=== PATIENT | male | born 1955 | race Hispanic/Latino ===

== ENCOUNTER 2019-05-13 13:12 | Inpatient (IN) | payer SELFPAY ==
[2019-05-13] MEDS ORDERED: Lorazepam 2 MG/ML VIAL ONE ×3 (13:25→15:04)
[2019-05-13] MEDS ORDERED: Iopamidol-370 76% 500 ML 1 ML ONE (13:54)
[2019-05-13 14:15] LABS: Hemoglobin 12.3 g/dL (14.0-18.0); Mean Corpuscular HGB CONC 35.9 g/dL (32.0-36.0); Mean Corpuscular Hemoglobin 34.1 pg (27.0-31.0); Mean Corpuscular Volume 94.9 fL (78.0-98.0); RBC Distribution Width 11.6 % (11.5-14.5); White Blood Cell (WBC) Count 4.6 thou/uL (4.8-10.8)
[2019-05-13 14:17] LABS: PTT 28.7 SEC (22.9-36.1); Prothrombin Time 13.1 SEC (12.0-14.7)
--- NOTE | 2019-05-13 14:24 | CT ---
CT OF THE BRAIN WITHOUT CONTRAST: INDICATION: History of seizures and heavy drinking history. COMPARISON: None. FINDINGS: No acute infarct, hemorrhage, or hydrocephalus is present. No midline shift is evident. The skull a nd extracranial soft tissues appear within normal limits. There is mild mucosal thickening of the et hmoid air cells. Mastoid air cells are clear. IMPRESSION: No acute intracranial abnormality. POS: TPC
[2019-05-13 14:36] LABS: ALT (SGPT) 59 U/L (8-55); AST (SGOT) 98 U/L (5-34); Acetaminophen Less than 6.0 mcg/mL (10.0-30.0); Albumin 3.9 g/dL (3.4-4.8); Alcohol Less than 10 mg/dL (Less than 10); Alkaline Phosphatase 124 U/L (40-110); Anion Gap 16 mmol/L (10-20); BUN (Urea Nitrogen) 13 mg/dL (8.4-25.7); Bilirubin, Total 1.3 mg/dL (0.2-1.2); Calc. Creatinine Clearance 0 mL/min (70-130); Carbon Dioxide 21 mmol/L (23-31); Chloride 84 mmol/L (98-107); Estimated GFR-MDRD Greater than 90; Globulin 3.9 g/dL (2.4-3.5); Glucose 97 mg/dL (80-115); Lipase 104 U/L (8-78); Potassium 3.8 mmol/L (3.5-5.1); Protein, Total 7.8 g/dL (5.8-8.1); Salicylate Less than 8.0 mg/dL (15.0-30.0)
[2019-05-13 14:38] LABS: Sodium 117 mmol/L (136-145)
[2019-05-13 14:43] LABS: Band 13 % (5-11); Eosinophils 1 % (0-10); Lymphocytes 11 % (21-51); MDiff Complete? YES; Monocytes 20 % (0-10); Neutrophil 54 % (42-75); Platelet Count 65 thou/uL (130-400); Platelet Morphology Comment Appears Decreased; Polychromasia SLIGHT = 2-3 cells (100X) (0-2/hpf); Reactive Lymphocytes 1 % (0-10)
[2019-05-13] MEDS ORDERED: Midazolam HCl 2 mg/2 ml Vial ONE ×3 (15:25→17:50)
[2019-05-13] MEDS ORDERED: Succinylcholine Chloride 20 MG/ML 10 ml SYRINGE FS ONE (15:33)
[2019-05-13] MEDS ORDERED: Phytonadione 10 MG/ML AMP ONE (15:35)
[2019-05-13] MEDS ORDERED: Propofol 1,000 MG/100 ML VIAL IV ONE ×2 (15:37→18:32)
--- NOTE | 2019-05-13 15:46 | RAD ---
EXAM: Single view of the chest HISTORY: Seizure and altered mental status COMPARISON: None FINDINGS: Single view of the chest shows a normal sized cardiomediastinal silhouette. An endotrachea l tube is seen with its tip at the upper border of the clavicles. An NG tube is curled in the stomach. There is no evidence of consolidation, mass, or pleural effusion. The bones are unremarkabl e. IMPRESSION: No evidence of acute cardiopulmonary disease
[2019-05-13 15:53] LABS: Actual Bicarbonate (HCO3a) 20.1 mEq/L (22-28); Analyzer IN Cardio ER; Base Excess (BEa) -2.5 mEq/L (-2.0 to +3.0); CO2 Tension 29.1 mmHg (35.0-45.0); Carboxyhemoglobin (COHb) 0.5 gm% (0.0-3.0); Hemoglobin (Hb) 13.2 g/dL (14.0-18.0); O2 Tension (PaO2) 120.5 mmHg (> 80.0); Potassium - ABG Lab 3.25 mmol/L (3.70-5.30); pH, Arterial 7.46 (7.35-7.45)
[2019-05-13 15:58] LABS: ALV-art Gradient 128.325 (0-20); Puncture Site LRA
[2019-05-13] MEDS ORDERED: Lorazepam 100 ML IVPB SCH (16:00)
[2019-05-13 16:12] LABS: Bacteria/HPF None Seen HPF (None Seen); Bilirubin Negative (Negative); Blood, Urine Trace (Negative); Clarity Clear (Clear); Glucose, Urine (Dipstick) Normal (Negative); Leukocyte Negative Leu/uL (Negative); Nitrite Negative (Negative); Protein, Urine (Dipstick) 20 mg/dL (Neg-Trace); RBC/HPF 0-3 HPF (0-3); Squamous Epithelial 0-3 HPF (0-3); Urobilinogen 6 mg/dL (Less than 2); WBC/HPF 0-3 HPF (0-3)
[2019-05-13 16:20] LABS: Amphetamine Not Detected (NotDetected); Barbiturates Screen Not Detected (NotDetected); Benzodiazepine Screen Detected (NotDetected); Cocaine Metabolite Screen Not Detected (NotDetected); Medtox Control Line Valid? VALID (VALID); Medtox Reader # READER 4; Methadone Not Detected (NotDetected); Methamphetamine Not Detected (NotDetected); Opiate Screen Not Detected (NotDetected); Oxycodone Screen Not Detected (NotDetected); Phencyclidine (PCP) Not Detected (NotDetected); THC/Cannabinoid Screen Not Detected (NotDetected); Tricyclic Screen Not Detected (NotDetected)
--- NOTE | 2019-05-13 16:26 | PDOC.FPRHP ---
- History of Present Illness Chief Complaint: Seizure activity History of Present Illness: 64yo M w/ pmhx of alcoholism presented to the ED via EMS for seizure-like activity. Family in the room state that the pt is a long time alcohol for over 40 years and currently drinks 4-6 32oz beers per day. They state that his last known drink was on Friday, however, he likely was drinking up until Friday when he began to display altered mentation. His symptoms started with confusion on Friday accompanied by staggering gait. Today they state the pt was not making any sense and speaking gibberish. Later pt developed generalized tonic- clonic seizure activity at which time EMS was called. Pt received 3g Ativan in the ED for agitation and seizure like activity. On exam pt had gargled breathing , was not controlling his secretions, and was listless - he was subsequently intubated and started on a sedation protocol before being admitted to the ICU. Family later noted pt had been complaining of abdominal pain earlier in the day. Denies any known N/V/D associated with this. Pt unable to express any pain or sx at this time. ED Course: CT head negative. CXR negative. Na 117. Ativan 3g given. Intubation with sedation protocol initiated. Central line placed for hypertonic saline. - Allergies/Adverse Reactions Allergies Allergy/AdvReac Type Severity Reaction Status Date / Time Penicillins Allergy Verified 05/13/19 20:15 - History PMHx: None PSHx: None FHx: No significant FMHx Social: Equivalent of 12-16 beers per day. 1/2 ppd smoker. Family deny illicit drug use - Review of Systems ROS unobtainable: due to mental status - Vital signs BP: 126/75, Pulse: 100, Resp: 20, Pain: 0, O2 sat: 97 on (Room Air) - Physical Exam -Constitutional: Listless, tremoring, ill appearing HEENT: MMM -HEENT: Right eye with purulent mucous, conjunctiva not erythematous or injected, pupils sluggishly responsive to light Neck: supple, no JVD Heart: RRR, normal S1/S2 -Lungs: Dysrhythmic breathing with sonorations, upper airway secretions easily audible with intermittent gasps and coughs Abdomen: soft, bowel sounds present, no masses/distention Musculoskeletal: normal structure, normal tone -Neurological: GCS of 7, listless, tremulous in all extremities Skin: no rash/lesions, capillary refill <2 seconds -Skin: Scattered bruising to anterolateral chest wall Heme/Lymphatic: no purpura -Psychiatric: Unable to assess FMR H&P: Results - Labs Result Diagrams: 05/15/19 03:49 05/15/19 03:49 Lab results: WBC 4.6 thou/uL (4.8-10.8) L 05/13/19 13:58 Hgb 12.3 g/dL (14.0-18.0) L 05/13/19 13:58 Hct 34.2 % (42.0-52.0) L 05/13/19 13:58 MCV 94.9 fL (78.0-98.0) 05/13/19 13:58 Plt Count 65 thou/uL (130-400) L 05/13/19 13:58 Band Neuts % (Manual) 13 % (5-11) H 05/13/19 13:58 ABG pH 7.46 (7.35-7.45) H 05/13/19 15:50 ABG pCO2 29.1 mmHg (35.0-45.0) L 05/13/19 15:50 ABG pO2 120.5 mmHg (> 80.0) H 05/13/19 15:50 Sodium 117 mmol/L (136-145) L* 05/13/19 13:58 Potassium 3.8 mmol/L (3.5-5.1) 05/13/19 13:58 Chloride 84 mmol/L (98-107) L 05/13/19 13:58 Carbon Dioxide 21 mmol/L (23-31) L 05/13/19 13:58 BUN 13 mg/dL (8.4-25.7) 05/13/19 13:58 Creatinine 0.84 mg/dL (0.7-1.3) 05/13/19 13:58 Glucose 97 mg/dL (80-115) 05/13/19 13:58 Calcium 9.0 mg/dL (7.8-10.44) 05/13/19 13:58 Total Bilirubin 1.3 mg/dL (0.2-1.2) H 05/13/19 13:58 AST 98 U/L (5-34) H 05/13/19 13:58 ALT 59 U/L (8-55) H 05/13/19 13:58 Alkaline Phosphatase 124 U/L (40-110) H 05/13/19 13:58 Serum Total Protein 7.8 g/dL (5.8-8.1) 05/13/19 13:58 Albumin 3.9 g/dL (3.4-4.8) 05/13/19 13:58 Lipase 104 U/L (8-78) H 05/13/19 13:58 Urine Ketones Negative mg/dL (Negative) 05/13/19 16:01 Urine Blood Trace (Negative) A 05/13/19 16:01 Urine Nitrite Negative (Negative) 05/13/19 16:01 Ur Leukocyte Esterase Negative Jocelyne/uL (Negative) 05/13/19 16:01 Urine RBC 0-3 HPF (0-3) 05/13/19 16:01 Urine WBC 0-3 HPF (0-3) 05/13/19 16:01 Ur Squamous Epith Cells 0-3 HPF (0-3) 05/13/19 16:01 Urine Bacteria None Seen HPF (None Seen) 05/13/19 16:01 - Radiology Interpretation Chest x-ray Status: report reviewed by me (No evidence of acute cardiopulmonary disease) CT scan - head Status: report reviewed by me (No acute intracranial abnormality.) FMR H&P: A/P - Problem List (1) Hyponatremia Current Visit: Yes Status: Acute Code(s): E87.1 - HYPO-OSMOLALITY AND HYPONATREMIA (2) Chronic alcohol abuse Current Visit: Yes Status: Acute Code(s): F10.10 - ALCOHOL ABUSE, UNCOMPLICATED (3) Alcohol withdrawal with delirium in inpatient treatment Current Visit: Yes Status: Acute Code(s): F10.231 - ALCOHOL DEPENDENCE WITH WITHDRAWAL DELIRIUM (4) Pancytopenia Current Visit: Yes Status: Acute Code(s): D61.818 - OTHER PANCYTOPENIA (5) Alcoholic hepatitis Current Visit: Yes Status: Acute Code(s): K70.10 - ALCOHOLIC HEPATITIS WITHOUT ASCITES - Plan Alcohol Withdrawal with Delirium Tremens - Intubated due to inability to protect airway - Propofol and Ativan drip to be titrated - ASE protocol currently held, will begin once extubated - Admitted to CCU, critical care consulting Suspected Cirrhosis - Chronic Alcoholic Hepatitis - Abdominal CT ordered - Hepatitis, HIV, and Syphylis labs ordered Hyponatremia - Secondary to above - Per Dr. Lara, critical care, will initiate hypertonic saline with q2 hr BMP to goal of Na > 120 - Once reached will transition to NS@ 100ml Pancytopenia - Likely secondary to above - Anticoagulation contraindicated - B12, Folate, Iron studies ordered Elevated Lipase - Unable to obtain if symptoms point to pancreatitis - Current BISAP prediction 0-22% mortality - LDH ordered for Ransons risk stratification Code: Full IVF: 3% NS @ 50ml Diet: NPO VTE: SCD Dispo: Admit to ICU for sedation titration and pulm/critical care management. ELOS > 48. PCP: NONE - CC Pt was seen and evaluated with my attending Dr. Gupta prior to admission to the ICU. FMR H&P: Upper Level - Plan Date/Time: 05/13/19 6611 I, Cristi Srivastava MD, have evaluated this patient and agree with findings/ plan as outlined by analytics intern resident. Pertinent changes/additions are listed here. 1. Alcohol Withdrawal with DT - Intubated due to inability to protect airway - Propofol and Ativan 2. Suspected Cirrhosis - Will order imaging and labs to further evaluate 3. Hyponatremia - Secondary to above - IVF and recheck 4. Pancytopenia - Likely secondary to above - Anticoagulation contraindicated 5. Elevated Lipase - Unable to obtain if symptoms point to pancreatitis - Will order appropriate labs to stratify PCP: NONE - CC CODE STATUS: FULL Disposition: Guarded, will admit to ICU for further evaluation and monitoring. Patient was seen and evaluated with Dr. Jocelyne Gupta who is in agreement with plan. Addendum - Attending - Attending Attestation Date/Time: 05/13/19 9020 I personally evaluated the patient and discussed the management with Dr. Heart and Carola I agree with the History, Examination, Assessment and Plan documented above with any addition or exceptions noted below. Patient with severe alcohol withdrawal and DT. Patient intubated in ER. Will place on benzo drip for now to help with sedation, seizures, and withdrawal. Will load with keppra. EEG if need for concern for status. Monitor labs closely over the next 24 hours. Wean benzos as able. Supplement with proprofol. Admit to ICU. Pulm consuted. Monitor for bleeding complications due to history. ABrayMD
[2019-05-13] MEDS ORDERED: Sodium Chloride 3% 500 ML IVPB SCH (16:30)
--- NOTE | 2019-05-13 17:23 | CON ---
DATE OF CONSULTATION: HISTORY OF PRESENT ILLNESS: A 64-year-old black gentleman who is intubated in the ER. He comes to the hospital after his son brought him. He states that for the last week or two, he has been hallucinating, confused, shaky, jerky. He drinks up to three to four 32 ounces of beer has been doing for many years. He called the police 911 several times and he was taken by son to his house since Friday four days ago. This morning, he became more confused, more hallucinated, apparently he had some kind of seizure activity. Therefore, he brought to the ER. He was intubated after he was given some Ativan to protect his IV. According to his son, he is a former smoker, quit smoking years ago. He is unclear if he has any other medical problem by history. PAST MEDICAL HISTORY: Unknown for diabetes and hypertension. PAST SURGERIES: Unknown. CARDIAC MEDICATION: None. ALLERGIES: APPARENTLY NONE. 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 REVIEW OF SYSTEMS: Otherwise negative. PHYSICAL EXAMINATION: GENERAL: He is sedated, vented. VITAL SIGNS: Pulse 80, blood pressure He is afebrile. His saturations are 93%. CHEST: Minimal crackles. CARDIAC: Normal S1, S2. No gallops. ABDOMEN: No masses. NEUROLOGIC: Sedated. Pupils are dilated. LABORATORY DATA: White count 4000, hemoglobin and hematocrit 12 and 34, platelet count 65, 54 segs, 13 bands. Sodium is 117, chloride AST is 98. CT brain shows no acute changes. IMPRESSION: 1. Beer-related hyponatremia. 2. Encephalopathy, possibly seizure disorders. 3. Tobacco abuse. 4. Thrombocytopenia. 5. 3% saline next 15 hours given for several hours until we slowly correct his sodium to 125 or so, and then after we will continue slow hydration with normal saline. 6. Continue observation in the ICU. 7. We will wean when he is stable. Empiric antibiotics and supportive care. This is a 45-minute critical time. Job ID: [id number]
[2019-05-13] MEDS ORDERED: Ventilator Sedation Protocol 1 EACH FS SCH (18:33)
[2019-05-13] MEDS ORDERED: CCU Electrolyte Replacement 1 EACH IVPB ONE (18:33)
[2019-05-13] MEDS ORDERED: DISCONTINUE PREVIOUS NARCOTIC PAIN MEDICATIONS AND BENZODIAZEPINES FS SCH (18:36)
[2019-05-13] MEDS ORDERED: Fentanyl BOLUS 250 ML IVPB PRN (18:36)
[2019-05-13] MEDS ORDERED: Potassium Chloride 20 MEQ TAB PO PRN (18:36)
[2019-05-13] MEDS ORDERED: Potassium Phosphate 9 MMOL in Sodium Chloride 0.9% 100 ML IVPB PRN (18:36)
[2019-05-13] MEDS ORDERED: Magnesium 2 GM/50 ML 2 GM in Premix Bag 1 BAG IVPB PRN (18:36)
[2019-05-13] MEDS ORDERED: Propofol BOLUS 1,000 MG/100 ML VIAL IV PRN (18:36)
[2019-05-13] MEDS ORDERED: Lorazepam 2 MG/ML VIAL SLOW IVP PRN (18:36)
[2019-05-13] MEDS ORDERED: CCU ELECTROLYTE REPLACEMENT PROTOCOL FS PRN (18:36)
[2019-05-13] MEDS ORDERED: Potassium Phosphate 12 MMOL in Sodium Chloride 0.9% 250 ML 250 ML IV PRN (18:36)
[2019-05-13] MEDS ORDERED: Magnesium Oxide 400 MG TAB PO PRN ×2 (18:36)
[2019-05-13] MEDS ORDERED: Potassium Chloride 40 MEQ in Sodium Chloride 0.9% 250 ML 250 ML IVPB PRN (18:36)
[2019-05-13] MEDS ORDERED: Potassium Chloride 40 MEQ in Premix Bag 1 BAG IVPB PRN (18:36)
[2019-05-13] MEDS ORDERED: Potassium Phosphate 15 MMOL in Sodium Chloride 0.9% 250 ML 250 ML IV PRN (18:36)
[2019-05-13] MEDS ORDERED: Morphine 2 MG/ML SYRINGE SLOW IVP PRN (18:36)
[2019-05-13] MEDS ORDERED: PHOS-NAK 1 PKT PACK PO PRN ×2 (18:36)
[2019-05-13] MEDS ORDERED: fentaNYL Citrate/PF 2,000 MCG in Sodium Chloride 0.9% 60 ML IV SCH (18:36)
[2019-05-13 19:08] LABS: Magnesium 1.3 mg/dL (1.6-2.6); Phosphorus 3.3 mg/dL (2.3-4.7)
[2019-05-13 19:21] LABS: Syphilis Antibody Nonreactive (Nonreactive); Syphilis Antibody Index 0.09 S/CO (<1.00 Non-Reactive)
[2019-05-13 19:21] LABS: Iron 43 ug/dL (65-175); Iron Binding Capacity, Total 219 mcg/dL (261-462)
--- NOTE | 2019-05-13 19:24 | CT ---
CT abdomen and pelvis with IV contrast HISTORY: Abdomen pain. FINDINGS: Atelectasis at the lung bases. Nasogastric tube descends to the stomach. Small cysts of eac h kidney. Mild calcification throughout the arterial structures. Spleen of normal size. Portal venous system shows good flow. Mild diverticula of the colon without adjacent inflammation. Appendix not inflamed. Degenerative changes throughout the lumbar spine. No free air or free fluid. IMPRESSION: No evidence of portal venous hypertension or other complication. Mild diverticulosis. No evidence of diverticulitis.
[2019-05-13 19:38] LABS: HBSAg Index 0.37 S/CO (0-0.99); Hep B Surf AB Non-Reactive (NonReactive); Hep B Surf Ag Non-Reactive S/CO (NonReactive)
[2019-05-13 19:40] LABS: HBCM Index 0.05 S/CO (0-0.79); Hep A IgM AB Non-Reactive (NonReactive); Hepatitis B Core IgM Abs Non-Reactive (NonReactive)
[2019-05-13 19:41] LABS: HIV (1/2) Antibody/Antigen Non-Reactive (NonReactive); HIV 1/2 INDEX 0.12 S/CO (<1.00)
[2019-05-13 20:16] VITALS: BMI 26.9
[2019-05-13 20:18] LABS: Ferritin 1173.52 ng/mL (22-322); Vitamin B12 421 pg/mL (211-911)
[2019-05-13 20:20] LABS: Anion Gap 13 mmol/L (10-20); BUN (Urea Nitrogen) 10 mg/dL (8.4-25.7); Calc. Creatinine Clearance 111 mL/min (70-130); Calcium 8.5 mg/dL (7.8-10.44); Carbon Dioxide 23 mmol/L (23-31); Chloride 88 mmol/L (98-107); Estimated GFR-MDRD Greater than 90; Glucose 82 mg/dL (80-115); Potassium 3.1 mmol/L (3.5-5.1); Sodium 121 mmol/L (136-145)
[2019-05-13] MEDS ORDERED: FLU VACC QS2019-20(6MOS UP)/PF 60 MCG/0.5 ML SYRINGE IM ONE (21:00)
[2019-05-13] MEDS: Thiamine HCl 200 MG/2 ML VIAL SLOW IVP SCH (21:15)
[2019-05-13] MEDS: Pantoprazole 40 MG VIAL IVP SCH (21:15)
[2019-05-13] MEDS: Sodium Chloride 0.9% 1,000 ML IV SCH (21:44)
--- NOTE | 2019-05-13 22:46 | PDOC.BPN ---
- Brief Progress Note Patient's Na noted to be 121 up from 117 stopped hypertonic saline and switch to NS at 100ml/hr
[2019-05-13 23:20] LABS: Anion Gap 13 mmol/L (10-20); BUN (Urea Nitrogen) 9 mg/dL (8.4-25.7); Calc. Creatinine Clearance 113 mL/min (70-130); Calcium 8.8 mg/dL (7.8-10.44); Carbon Dioxide 22 mmol/L (23-31); Chloride 93 mmol/L (98-107); Estimated GFR-MDRD Greater than 90; Glucose 83 mg/dL (80-115); Potassium 3.4 mmol/L (3.5-5.1); Sodium 125 mmol/L (136-145)
[2019-05-14] MEDS: Propofol 1,000 MG/100 ML VIAL IV PRN ×2 (00:08→04:58)
[2019-05-14 04:49] LABS: ALT (SGPT) 60 U/L (8-55); AST (SGOT) 105 U/L (5-34); Albumin 3.7 g/dL (3.4-4.8); Alkaline Phosphatase 121 U/L (40-110); Anion Gap 12 mmol/L (10-20); BUN (Urea Nitrogen) 8 mg/dL (8.4-25.7); Bilirubin, Total 1.2 mg/dL (0.2-1.2); Calc. Creatinine Clearance 107 mL/min (70-130); Calcium 8.9 mg/dL (7.8-10.44); Carbon Dioxide 23 mmol/L (23-31); Chloride 96 mmol/L (98-107); Estimated GFR-MDRD Greater than 90; Globulin 3.8 g/dL (2.4-3.5); Glucose 86 mg/dL (80-115); Potassium 3.8 mmol/L (3.5-5.1); Protein, Total 7.5 g/dL (5.8-8.1); Sodium 127 mmol/L (136-145)
--- NOTE | 2019-05-14 04:54 | PDOC.BPN ---
- Brief Progress Note Na up to 127 from 117 over 14 hours Will switch from NS to d5-1/2NS and re-check BMP in 3 hours
[2019-05-14 04:57] LABS: Band 15 % (5-11); Eosinophils 2 % (0-10); Hemoglobin 12.6 g/dL (14.0-18.0); Lymphocytes 9 % (21-51); MDiff Complete? YES; Mean Corpuscular HGB CONC 34.3 g/dL (32.0-36.0); Mean Corpuscular Hemoglobin 32.6 pg (27.0-31.0); Mean Corpuscular Volume 95.1 fL (78.0-98.0); Mean Platelet Volume 9.5 fL (7.4-10.4); Monocytes 18 % (0-10); Neutrophil 56 % (42-75); Platelet Count 70 thou/uL (130-400); Platelet Morphology Comment Appears Decreased; RBC Distribution Width 11.7 % (11.5-14.5); Red Blood Cell (RBC) Count 3.86 mill/uL (4.70-6.10); White Blood Cell (WBC) Count 6.4 thou/uL (4.8-10.8)
[2019-05-14] MEDS ORDERED: Dextrose 5 %-0.45 % NaCl 1,000 ML IV SCH (05:00)
[2019-05-14 07:07] LABS: Actual Bicarbonate (HCO3a) 20.1 mEq/L (22-28); Base Excess (BEa) -3.3 mEq/L (-2.0 to +3.0); CO2 Tension 31.2 mmHg (35.0-45.0); Calcium, Ionized 1.17 mmol/L (1.12-1.30); Carboxyhemoglobin (COHb) 1.1 gm% (0.0-3.0); Hemoglobin (Hb) 12.7 g/dL (14.0-18.0); Potassium - ABG Lab 3.36 mmol/L (3.70-5.30); pH, Arterial 7.43 (7.35-7.45)
--- NOTE | 2019-05-14 07:20 | PDOC.FM ---
- Subjective Subjective: NAEO. Did not require further ativan. mildly diaphoretic this morning. - Objective MAR Reviewed: Yes Vital Signs & Weight: Vital Signs (12 hours) Temp Pulse Resp BP Pulse Ox 05/14/19 06:00 14 05/14/19 04:00 99.0 F 17 05/14/19 02:46 83 131/80 05/14/19 02:00 14 05/14/19 00:00 99.0 F 16 05/13/19 22:32 86 124/76 05/13/19 22:00 15 05/13/19 20:00 98.5 F 19 100 Weight Weight 80.3 kg Most Recent Monitor Data Heart Rate from ECG 76 NIBP 119/94 NIBP BP-Mean 102 Respiration from ECG 18 SpO2 100 I&O: 05/13/19 05/14/19 05/15/19 06:59 06:59 06:59 Intake Total 1230 Output Total 2575 Balance -1345 Result Diagrams: 05/14/19 04:16 05/14/19 11:35 Phys Exam - Physical Examination extubated diaphoretic HEENT: PERRLA, moist MMs, sclera anicteric Respiratory: no wheezing, clear to auscultation bilateral Cardiovascular: RRR, no significant murmur Gastrointestinal: soft, non-tender Musculoskeletal: no edema Dx/Plan (1) Alcohol withdrawal with delirium in inpatient treatment Code(s): F10.231 - ALCOHOL DEPENDENCE WITH WITHDRAWAL DELIRIUM Status: Acute (2) Alcoholic hepatitis Code(s): K70.10 - ALCOHOLIC HEPATITIS WITHOUT ASCITES Status: Acute (3) Chronic alcohol abuse Code(s): F10.10 - ALCOHOL ABUSE, UNCOMPLICATED Status: Acute (4) Hyponatremia Code(s): E87.1 - HYPO-OSMOLALITY AND HYPONATREMIA Status: Acute (5) Pancytopenia Code(s): D61.818 - OTHER PANCYTOPENIA Status: Acute - Plan Plan: 64 yo M with EtOH abuse here for alchol withdrawal with DTs who was intubated due to concern for airway protection with severe hyponatremia. Currently intubated. #. Acute Respiratory failure requiring mechanical ventilation s/p extubation -Intubated d/t inability to protect airway -Pulmnology on board, recs appreciated #. Hyponatremia 2/2 beer potomania - Secondary to above - Claire too quickly from 117->127 on 3% NS, switched to D5 1/2 NS @100cc/hr - BMP [id number] - Inc rate of D5 1/2 NS; Consult nephro if worsens #. Alcohol Withdrawal with DT - Off of propofol sedation - ASE protcol, ativan PRN for breakthrough agitation, may need precedex - CT Abd with no evidence of cirrhosis - Thiamine, multivitamin #. Hypokalemia -replace #. Hypomagnesemia -replace #. EtOH abuse -Will chromosomal disorders counselor on cessation #. Presumed PNA -Procal elevated -Can continue rocephin course pending blood cx -If negative, can consider early d/c of abx or complete to 5 day course #. Transamnitis -Likely from chronic alcohol use -Stable, continue trending -Pending Hep C -HIV/RPR/Hep B neg. #. 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 Madden. I agree with the History, Examination, Assessment and Plan documented above with any addition or exceptions noted below.
[2019-05-14 07:55] LABS: Peep/CPAP 37.4 cmH2O; Puncture Site RRAD
[2019-05-14 08:16] LABS: Anion Gap 12 mmol/L (10-20); BUN (Urea Nitrogen) 7 mg/dL (8.4-25.7); Calc. Creatinine Clearance 113 mL/min (70-130); Calcium 8.6 mg/dL (7.8-10.44); Carbon Dioxide 22 mmol/L (23-31); Chloride 96 mmol/L (98-107); Estimated GFR-MDRD Greater than 90; Glucose 103 mg/dL (80-115); Potassium 3.3 mmol/L (3.5-5.1); Sodium 127 mmol/L (136-145)
[2019-05-14 08:32] LABS: Hep C IgG Ab Non-Reactive (NonReactive); Hep C Index 0.18 S/CO (0-0.79)
[2019-05-14] MEDS ORDERED: Diazepam 5 MG TAB PO PRN (08:47)
--- NOTE | 2019-05-14 08:53 | PRG ---
DATE OF SERVICE: 05/14/2019 SUBJECTIVE: This morning, he is intubated in the vent, sedated. OBJECTIVE: VITAL SIGNS: Pulse 66, blood pressure 119/94, temperature 99, saturations 100%. I's and O's have been 123 in, 2575 out. HEENT: Pupils are equal. NEUROLOGIC: He is sedated, but appropriate sedation was withheld. CHEST: Decreased breath sounds. No wheezing. CARDIAC: Normal S1 and S2. No gallops. ABDOMEN: No masses. LABORATORY DATA: White count 6000, H and H of 12 and 36, platelet count is 70,000. PO2 is 105, pCO2 is . Urinary sodium was 45. ASSESSMENT: Respiratory failure, alcohol abuse, beer associated hyponatremia. PLAN: Hold sedation. Consider weaning. Continue slow hydration with normal saline. Consider starting nutrition. Incidentally, his chest x-ray was normal. Though we did empirically start him on antibiotic. We will follow. One-half hour of critical time. Job ID: [id number]
[2019-05-14] MEDS ORDERED: Diazepam 5 MG TAB PO SCH (09:00)
[2019-05-14] MEDS ORDERED: Thiamine HCl 200 MG/2 ML VIAL IM SCH (09:00)
--- NOTE | 2019-05-14 09:27 | RAD ---
SEMIUPRIGHT FRONTAL CHEST RADIOGRAPH: DATE: 05/14/2019. COMPARISON: 05/13/2019. HISTORY: Ventilated patient. FINDINGS: Stable endotracheal tube and nasogastric tube. No focal consolidation or alveolar edema. Stable mil d increased linear density in the left lung base. IMPRESSION: No significant interval change. POS: TPC
[2019-05-14] MEDS: Folic Acid 1 MG TAB PO SCH (09:33)
[2019-05-14] MEDS: Pantoprazole 40 MG VIAL IVP SCH ×2 (09:33→21:05)
[2019-05-14] MEDS: Multivitamin W/ Minerals 1 TAB PO SCH (09:33)
[2019-05-14 12:28] LABS: Anion Gap 12 mmol/L (10-20); BUN (Urea Nitrogen) 6 mg/dL (8.4-25.7); Calc. Creatinine Clearance 114 mL/min (70-130); Calcium 8.8 mg/dL (7.8-10.44); Carbon Dioxide 22 mmol/L (23-31); Chloride 96 mmol/L (98-107); Estimated GFR-MDRD Greater than 90; Glucose 124 mg/dL (80-115); Potassium 3.2 mmol/L (3.5-5.1); Sodium 127 mmol/L (136-145)
[2019-05-14] MEDS: Oxazepam 10 MG CAP PO SCH ×2 (14:35→21:04)
[2019-05-14 16:19] LABS: Anion Gap 12 mmol/L (10-20); BUN (Urea Nitrogen) 5 mg/dL (8.4-25.7); Calc. Creatinine Clearance 116 mL/min (70-130); Calcium 8.7 mg/dL (7.8-10.44); Carbon Dioxide 23 mmol/L (23-31); Chloride 95 mmol/L (98-107); Estimated GFR-MDRD Greater than 90; Glucose 101 mg/dL (80-115); Potassium 3.4 mmol/L (3.5-5.1); Sodium 127 mmol/L (136-145)
[2019-05-14] MEDS: Thiamine HCl 200 MG/2 ML VIAL SLOW IVP SCH (22:20)
[2019-05-15] MEDS: Sodium Chloride 0.9% 1,000 ML IV SCH (02:32)
[2019-05-15] MEDS ORDERED: Diazepam 5 MG TAB PO PRN (04:00)
[2019-05-15 05:02] LABS: ALT (SGPT) 48 U/L (8-55); AST (SGOT) 79 U/L (5-34); Albumin 3.6 g/dL (3.4-4.8); Alkaline Phosphatase 121 U/L (40-110); Anion Gap 11 mmol/L (10-20); BUN (Urea Nitrogen) 6 mg/dL (8.4-25.7); Bilirubin, Total 1.4 mg/dL (0.2-1.2); Calc. Creatinine Clearance 105 mL/min (70-130); Calcium 8.9 mg/dL (7.8-10.44); Carbon Dioxide 24 mmol/L (23-31); Chloride 94 mmol/L (98-107); Estimated GFR-MDRD Greater than 90; Globulin 3.8 g/dL (2.4-3.5); Glucose 112 mg/dL (80-115); Potassium 3.1 mmol/L (3.5-5.1); Protein, Total 7.4 g/dL (5.8-8.1); Sodium 126 mmol/L (136-145)
--- NOTE | 2019-05-15 05:23 | PDOC.FM ---
- Subjective Subjective: 64 yo male seen at bedside this AM. 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 Patient reports he feels well this AM. Patient notes that he has some pain in his left wrist and shoulder. Family notes that he did have a fall earlier this week. Patient denies hallucinations, tremors, or other complaints. Nursing staff reports he has been doing well and only has requested something for the pain in his wrist. - Objective Vital Signs & Weight: Vital Signs (12 hours) Temp BP Pulse Ox 05/15/19 04:00 99.1 F 05/15/19 00:00 100.0 F H 05/14/19 20:00 124/63 97 05/14/19 19:00 99.6 F Weight Admit Weight 80.195 kg Weight 79.1 kg Most Recent Monitor Data Heart Rate from ECG 76 NIBP 150/77 NIBP BP-Mean 101 Respiration from ECG 13 SpO2 100 I&O: 05/13/19 05/14/19 05/15/19 06:59 06:59 06:59 Intake Total 1230 3557 Output Total 2575 2860 Balance -1345 697 Result Diagrams: 05/15/19 03:49 05/15/19 03:49 Phys Exam - Physical Examination Constitutional: NAD HEENT: PERRLA, moist MMs Respiratory: no wheezing, clear to auscultation bilateral Cardiovascular: RRR, no significant murmur Gastrointestinal: soft, non-tender, no distention, positive bowel sounds Musculoskeletal: no edema, pulses present Left wrist reduced ROM with flexion. Point tenderness over area as well. Reduced ROM at shoulder with flexion as well. Unable to fully test this AM Neurological: non-focal, moves all 4 limbs Psychiatric: A&O x 3 Skin: no rash, cap refill <2 seconds Dx/Plan (1) Alcohol withdrawal with delirium in inpatient treatment Code(s): F10.231 - ALCOHOL DEPENDENCE WITH WITHDRAWAL DELIRIUM Status: Acute (2) Chronic alcohol abuse Code(s): F10.10 - ALCOHOL ABUSE, UNCOMPLICATED Status: Acute (3) Hyponatremia Code(s): E87.1 - HYPO-OSMOLALITY AND HYPONATREMIA Status: Acute (4) Wrist pain Code(s): M25.539 - PAIN IN UNSPECIFIED WRIST Status: Acute Qualifiers: Laterality: left Qualified Code(s): M25.532 - Pain in left wrist - Plan Plan: # Alcohol Withdrawal with DT - s/p extubation on 05/14 - ASE protocol - Oxazepam and Diazepam ordered - Thiamine, multivitamin - Hepatitis labs negative - Recommend complete continued cessation. # Hyponatremia 2/2 beer potomania - Secondary to above - Na stable and at 126 this AM - IVF discontinued overnight - Will space out BMP to daily # Transamnitis -Likely from chronic alcohol use -Stable, continue trending -Hep C negative -HIV/RPR/Hep B negative # Thrombocytopenia - Likely secondary to above - Anticoagulation contraindicated at this time # Wrist pain/MSK pain - XR ordered - Follow up with results when known - Pain control Disposition: Stable, will continue current plan of care and likely transfer out of ICU this AM. Addendum - Attending - Attending Attestation Date/Time: 05/15/19 2837 I personally evaluated the patient and discussed the management with Dr. Srivastava. I agree with the History, Examination, Assessment and Plan documented above with any addition or exceptions noted below. Patient currently improved, no further evidence of DT. He continues on benzo's, will likely need a taper and complete cessation from EtOH. Hyponatremia stable, needs improved solute intake and monitor. BP improved. Transfer out of CCU.
[2019-05-15 05:40] LABS: Band 14 % (5-11); Eosinophils 2 % (0-10); Hemoglobin 12.1 g/dL (14.0-18.0); Lymphocytes 18 % (21-51); MDiff Complete? YES; Mean Corpuscular HGB CONC 34.9 g/dL (32.0-36.0); Mean Corpuscular Hemoglobin 33.2 pg (27.0-31.0); Mean Corpuscular Volume 95.2 fL (78.0-98.0); Mean Platelet Volume 9.7 fL (7.4-10.4); Monocytes 23 % (0-10); Neutrophil 43 % (42-75); Platelet Count 90 thou/uL (130-400); Platelet Morphology Comment Appears Decreased; RBC Distribution Width 11.6 % (11.5-14.5); Red Blood Cell (RBC) Count 3.63 mill/uL (4.70-6.10); White Blood Cell (WBC) Count 6.2 thou/uL (4.8-10.8)
--- NOTE | 2019-05-15 07:35 | RAD ---
EXAM: XR Wrist 3 Lt View STANDARD PROVIDED CLINICAL HISTORY: Pain FINDINGS: There is no evidence for fracture or other acute osseous abnormality. Alignment appears anatomic. Jalyn nt spaces appear preserved. IMPRESSION: No evidence for an acute osseous abnormality. If there is persistent clinical concern, conservative m anagement and follow-up imaging advised.
--- NOTE | 2019-05-15 07:35 | RAD ---
EXAM: XR Shoulder Rt 3 View STANDARD PROVIDED CLINICAL HISTORY: Pain FINDINGS: There is no evidence for fracture or other acute osseous abnormality. Alignment appears anatomic. Jalyn nt spaces appear preserved. IMPRESSION: No evidence for an acute osseous abnormality. If there is persistent clinical concern, conservative m anagement and follow-up imaging advised.
--- NOTE | 2019-05-15 07:43 | RAD ---
EXAM: Portable chest PROVIDED CLINICAL HISTORY: Respiratory insufficiency COMPARISON: 05/14/2019 FINDINGS: Interval extubation and removal of enteric catheter. Additional significant interval change with resp ect to the prior examination is not apparent. IMPRESSION: As above.
[2019-05-15] MEDS ORDERED: Magnesium Oxide 400 MG TAB PO SCH (09:00)
[2019-05-15] MEDS: Folic Acid 1 MG TAB PO SCH (09:23)
[2019-05-15] MEDS: Thiamine 100 MG TAB PO SCH (09:23)
[2019-05-15] MEDS: Multivitamin W/ Minerals 1 TAB PO SCH (09:23)
[2019-05-15] MEDS: Oxazepam 10 MG CAP PO SCH ×4 (09:23→20:06)
[2019-05-15] MEDS ORDERED: Oxazepam 10 MG CAP PO SCH (09:45)
[2019-05-15] MEDS: Ibuprofen 600 MG TAB PO PRN ×2 (10:50→17:52)
--- NOTE | 2019-05-15 14:59 | PRG ---
DATE OF SERVICE: 05/15/2019 OBJECTIVE: GENERAL: Mr. Hoffman is in no distress. VITAL SIGNS: Heart rate is in the 90s. Blood pressure is 117/70, respiratory rate is 18. He denies having any pain. LUNGS: Clear. HEART: Regular rhythm. ABDOMEN: Soft. DIAGNOSTIC DATA: Chest x-ray was done this morning postextubation. X-ray is clear exception perhaps an early hazy infiltrate in the area of the superior segment right lower lobe. He has a temperature of 100.4. IMPRESSION: 1. Status post respiratory failure, now awaken, able to answer questions. 2. Long history of alcohol abuse. 3. History of beer drinkers potomania. Sodium of 126 today. 4. Elevated liver enzymes secondary to most likely his alcohol abuse. He is stable to move out of the Critical Care Unit, my opinion. His temperature curve probably needs to be monitored. If he develops a fever, repeat radiograph needs to be ordered to look at that area in his right lower lung field. Job ID: [id number]
[2019-05-16 06:05] LABS: ALT (SGPT) 45 U/L (8-55); AST (SGOT) 86 U/L (5-34); Albumin 3.5 g/dL (3.4-4.8); Alkaline Phosphatase 113 U/L (40-110); Anion Gap 15 mmol/L (10-20); BUN (Urea Nitrogen) 8 mg/dL (8.4-25.7); Bilirubin, Total 1.4 mg/dL (0.2-1.2); Calc. Creatinine Clearance 111 mL/min (70-130); Calcium 9.1 mg/dL (7.8-10.44); Carbon Dioxide 18 mmol/L (23-31); Chloride 98 mmol/L (98-107); Estimated GFR-MDRD Greater than 90; Globulin 4.1 g/dL (2.4-3.5); Glucose 104 mg/dL (80-115); Potassium 3.8 mmol/L (3.5-5.1); Protein, Total 7.6 g/dL (5.8-8.1); Sodium 127 mmol/L (136-145)
--- NOTE | 2019-05-16 06:09 | PDOC.FM ---
- Subjective Subjective: 64 yo male seen at bedside this AM. ship fast[employer] services are used during this visit. Patient reports improvement in left shoulder and wrist pain. Patient also notes that he hasn't been able to walk very well due to left hip pain. He states that he will be discharged home to live with his son, but fears he is not ready to go yet. PT has not been working with him as of yet. Patient has no other complaints. - Objective Vital Signs & Weight: Vital Signs (12 hours) Temp Pulse Resp BP BP Pulse Ox 05/16/19 04:13 98.7 F 88 18 138/82 98 05/16/19 04:00 138/82 05/16/19 00:52 97.4 F L 83 20 119/72 97 05/16/19 00:00 119/72 05/15/19 20:03 96 05/15/19 20:00 124/73 05/15/19 19:21 99.4 F 94 16 124/73 96 Weight Admit Weight 80.195 kg Weight 77.9 kg Most Recent Monitor Data Heart Rate from ECG 80 NIBP 151/77 NIBP BP-Mean 101 Respiration from ECG 14 SpO2 100 I&O: 05/14/19 05/15/19 05/16/19 06:59 06:59 06:59 Intake Total 1230 3769 1670 Output Total 2575 3060 550 Balance -8857 901 1872 Result Diagrams: 05/15/19 03:49 05/16/19 05:22 Phys Exam - Physical Examination Constitutional: NAD HEENT: moist MMs Respiratory: no wheezing, clear to auscultation bilateral Cardiovascular: RRR, no significant murmur Gastrointestinal: soft, non-tender, positive bowel sounds Musculoskeletal: no edema, pulses present Neurological: non-focal, normal sensation, moves all 4 limbs Reduced ROM to left hip secondary to pain. Strength testing reduced Psychiatric: A&O x 3 Skin: no rash, cap refill <2 seconds Dx/Plan (1) Alcohol withdrawal with delirium in inpatient treatment Code(s): F10.231 - ALCOHOL DEPENDENCE WITH WITHDRAWAL DELIRIUM Status: Resolved (2) Chronic alcohol abuse Code(s): F10.10 - ALCOHOL ABUSE, UNCOMPLICATED Status: Chronic (3) Hyponatremia Code(s): E87.1 - HYPO-OSMOLALITY AND HYPONATREMIA Status: Chronic (4) Transaminitis Code(s): R74.0 - NONSPEC ELEV OF LEVELS OF TRANSAMNS & LACTIC ACID DEHYDRGNSE Status: Acute (5) Wrist pain Code(s): M25.539 - PAIN IN UNSPECIFIED WRIST Status: Acute Qualifiers: Laterality: left Qualified Code(s): M25.532 - Pain in left wrist (6) Hip pain Code(s): M25.559 - PAIN IN UNSPECIFIED HIP Status: Acute Qualifiers: Laterality: left Qualified Code(s): M25.552 - Pain in left hip - Plan Plan: # Alcohol Withdrawal with DT - s/p extubation on 05/14 - ASE protocol - Oxazepam and Diazepam ordered - Thiamine, multivitamin - Hepatitis labs negative - Recommend complete continued cessation. # Hyponatremia 2/2 beer potomania - Secondary to above - Na stable and at 127 this AM # Transamnitis -Likely from chronic alcohol use -Stable # Wrist pain/Hip Pain/MSK pain - XR ordered - Follow up with results when known - Pain control - PT/OT ordered Disposition: Stable, will continue current plan of care. Patient is uninsured and placement will not be an option. Addendum - Attending - Attending Attestation Date/Time: 05/16/19 9354 I personally evaluated the patient and discussed the management with Dr. Srivastava. I agree with the History, Examination, Assessment and Plan documented above with any addition or exceptions noted below. Patient doing well. No evidence of DTs. Continue benzo taper. Work with PT, but he is nearing the point of stability for discharge home. Sodium level stable.
[2019-05-16] MEDS: Multivitamin W/ Minerals 1 TAB PO SCH (07:47)
[2019-05-16] MEDS: Thiamine 100 MG TAB PO SCH (07:47)
[2019-05-16] MEDS: Folic Acid 1 MG TAB PO SCH (07:47)
[2019-05-16] MEDS: Ibuprofen 600 MG TAB PO PRN ×2 (07:48→16:14)
[2019-05-16] MEDS: Oxazepam 10 MG CAP PO SCH ×3 (09:02→20:52)
--- NOTE | 2019-05-16 09:56 | PRG ---
DATE OF SERVICE: 05/16/2019 OBJECTIVE: VITAL SIGNS: Mr. Hoffman remains afebrile. Heart rate in the 80s, blood pressure 134/79, oximetry is 96 on room air. LUNGS: Essentially unchanged. HEART: Essentially unchanged. ABDOMEN: Essentially unchanged. LABORATORY DATA: Sodium is up 1 point to 127, potassium is normal at 3.8, BUN is 8, creatinine 0.76. Liver enzymes are stable. IMPRESSION: 1. Status post mechanical ventilation. 2. Long history of alcohol use. 3. Hyponatremia, most likely secondary to alcohol abuse. 4. Elevated liver enzymes. He appears to be stable overall. No fever. We will see him as needed in the future. Job ID: [id number]
[2019-05-16] MEDS ORDERED: Polyethylene Glycol 3350 17 GM Packet PO PRN (15:03)
[2019-05-17 06:03] LABS: ALT (SGPT) 49 U/L (8-55); AST (SGOT) 95 U/L (5-34); Albumin 3.4 g/dL (3.4-4.8); Alkaline Phosphatase 113 U/L (40-110); Anion Gap 15 mmol/L (10-20); BUN (Urea Nitrogen) 12 mg/dL (8.4-25.7); Bilirubin, Total 1.1 mg/dL (0.2-1.2); Calc. Creatinine Clearance 107 mL/min (70-130); Calcium 9.2 mg/dL (7.8-10.44); Carbon Dioxide 20 mmol/L (23-31); Chloride 97 mmol/L (98-107); Estimated GFR-MDRD Greater than 90; Glucose 96 mg/dL (80-115); Potassium 3.9 mmol/L (3.5-5.1); Protein, Total 7.4 g/dL (5.8-8.1); Sodium 128 mmol/L (136-145)
--- NOTE | 2019-05-17 06:06 | PDOC.FM ---
- Subjective Subjective: Pt continues to do well today. Son and pt state that pt is getting around better today. State he is able to ambulate on his own. Son expresses that he is comfortable taking pt home. Pt was instructed to continue his alcohol cessation and he agreed. Plan to work with PT this afternoon to assess functional status and possible DC following this. - Objective Vital Signs & Weight: Vital Signs (12 hours) Temp Pulse Resp BP BP Pulse Ox 05/17/19 04:06 98.9 F 78 16 128/73 96 05/17/19 04:00 128/73 05/17/19 00:23 98.4 F 73 16 117/69 97 05/17/19 00:00 117/69 05/16/19 20:00 132/78 05/16/19 19:36 97 05/16/19 19:08 98.1 F 80 16 132/78 97 Weight Admit Weight 80.195 kg Weight 77.9 kg Most Recent Monitor Data Heart Rate from ECG 80 NIBP 151/77 NIBP BP-Mean 101 Respiration from ECG 14 SpO2 100 I&O: 05/15/19 05/16/19 05/17/19 06:59 06:59 06:59 Intake Total 3769 1670 720 Output Total 3060 550 200 Balance 709 1120 520 Result Diagrams: 05/15/19 03:49 05/17/19 05:04 Phys Exam - Physical Examination Constitutional: NAD HEENT: moist MMs Neck: full ROM Respiratory: no wheezing, clear to auscultation bilateral Cardiovascular: RRR, no significant murmur Gastrointestinal: soft, non-tender Musculoskeletal: no edema, pulses present Neurological: moves all 4 limbs Psychiatric: normal affect, A&O x 3 Skin: no rash, cap refill <2 seconds Dx/Plan (1) Hyponatremia Code(s): E87.1 - HYPO-OSMOLALITY AND HYPONATREMIA Status: Chronic (2) Chronic alcohol abuse Code(s): F10.10 - ALCOHOL ABUSE, UNCOMPLICATED Status: Chronic (3) Alcohol withdrawal with delirium in inpatient treatment Code(s): F10.231 - ALCOHOL DEPENDENCE WITH WITHDRAWAL DELIRIUM Status: Resolved (4) Pancytopenia Code(s): D61.818 - OTHER PANCYTOPENIA Status: Acute (5) Alcoholic hepatitis Code(s): K70.10 - ALCOHOLIC HEPATITIS WITHOUT ASCITES Status: Acute - Plan Plan: Alcohol Withdrawal with DT - ASE protocol - Oxazepam and Diazepam ordered - Thiamine, multivitamin - Hepatitis labs negative - Recommend complete continued cessation, will DC with long acting benzo - PT evaluated, recommend rehab center vs home w/ assist if good improvement - uninsured pt, will be unable to find placement, plan for home w/ son Hyponatremia 2/2 beer potomania - Secondary to above - Na stable and at 127 this AM Transamnitis -Likely from chronic alcohol use -Stable Wrist pain/Hip Pain/MSK pain - XRs yesterday negative for acute osseous abnormalities - Pain control - PT/OT ordered Disposition: Admit to medical. Plan to DC later today as long as pt does well with PT today. Addendum - Attending - Attending Attestation Date/Time: 05/17/19 3911 I personally evaluated the patient and discussed the management with Dr. Mckeon. I agree with the History, Examination, Assessment and Plan documented above with any addition or exceptions noted below. Patient doing well. No evidence for DTs. He continues on benzo taper. He is deconditioned but not a candidate for rehab due to finances. He is nearing stability for discharge and will be going home with his son.
[2019-05-17] MEDS: Multivitamin W/ Minerals 1 TAB PO SCH (08:44)
[2019-05-17] MEDS: Folic Acid 1 MG TAB PO SCH (08:44)
[2019-05-17] MEDS: Thiamine 100 MG TAB PO SCH (08:45)
[2019-05-17] MEDS: Ibuprofen 600 MG TAB PO PRN (09:02)
[2019-05-17] MEDS: Oxazepam 10 MG CAP PO SCH (09:02)
--- NOTE | 2019-05-17 09:39 | PRG ---
DATE OF SERVICE: 05/17/2019 SUBJECTIVE: This morning, he is awake, alert, and responsive. He is walking in the [place]. OBJECTIVE: VITAL SIGNS: Temperature 99.7, pulse 84, respirations 20, and blood pressure 128/75. GENERAL: Awake, alert, and responsive. No longer encephalopathic. CHEST: Decreased breath sounds. No wheezing. CARDIAC: Normal S1 and S2. No gallops. ABDOMEN: No masses. LABORATORY DATA: Sodium is 128, AST is 95, and albumin is normal. ASSESSMENT: 1. Hyponatremia and encephalopathy, improved. 2. Respiratory failure. PLAN: Continue supportive care. Needs ongoing counseling. His son is at the bedside. Advised to him, this is the best option for him. Pulmonary will follow at a distance. Call if needed. Job ID: [id number]
[2019-05-17 12:10] VITALS: BP 129/74; TEMP 99
--- NOTE | 2019-05-19 14:44 | DIS ---
DATE OF ADMISSION: 05/13/2019 DATE OF DISCHARGE: 05/17/2019 ADMITTING ATTENDING: Jocelyne Gupta MD DISCHARGE ATTENDING: Cory Acosta MD. RESIDENT: Andrew Mckeon DO CONSULTS: Pulmonology, Dr. Philip Lara. PROCEDURES: Intubation, right femoral vein central line placement on 05/13/2019. IMAGING: Brain CT without contrast. Findings; no acute intracranial abnormality. Chest x-ray; findings, no evidence of acute cardiopulmonary disease. Abdomen and pelvis CT with contrast. Findings; no evidence of portal venous hypertension or other complication. Mild diverticulosis without evidence of diverticulitis. Shoulder x-ray, no evidence for acute osseous abnormality. Wrist x-ray; findings, no evidence for acute osseous abnormality. PRIMARY DIAGNOSES: Alcohol withdrawal with delirium tremens and seizure, hyponatremia, alcoholic hepatitis. SECONDARY DIAGNOSES: Chronic alcohol abuse, pancytopenia, mixed anemia. DISCHARGE MEDICATIONS: 1. Folic acid 1 mg daily. 2. Multivitamin with minerals one tab daily. 3. Serax 10 mg p.o. t.i.d. for 3 days. 4. Thiamine 100 mg daily. HISTORY OF PRESENT ILLNESS AND HOSPITAL COURSE: A 64-year-old male with past medical history of alcoholism, presents to the ED via EMS following seizure-like activity. Family in the room stated that the patient has been drinking for over 40 years and currently consumes 4 to 6, 32 ounce beers per day. They state that the last known drink was 4 days ago. Family reports that the patient started to act confused and had stumbling gait 2 days ago and today, the symptoms worsened and the patient began having tonic clonic seizure activity prior to arrival. In the ED, the patient received Ativan for his agitation and seizure activity. At the time of evaluation, the patient was not controlling his secretions or protecting his airway and had a GCS of 7. The patient was subsequently intubated and admitted to the ICU. Dr. Philip Lara with Pulmonology was consulted due to ICU admission. He started the patient on hypertonic saline following a sodium of 117. The right femoral vein central line was placed to administer the hypertonic saline. BMP was collected every 2 hours during this administration. In the 1st day, the patient's sodium went from 117 to 127, and the patient was subsequently transitioned to D5 half-normal saline before being taken off intravenous fluids and encouraged to consume oral hydration from that point on. The patient was extubated under 24 hours after he was following commands and responding appropriately. The patient was then transitioned from propofol and Ativan titrated drip to long-acting oral benzos. Over the next few days, the patient progressed well with resolution in his tremors and withdrawal symptoms. The patient did note some left-sided pain in his shoulder and wrist, which was imaged and was found to be negative for any acute bony abnormality and was likely related to contusion sustained during his seizures. Prior to discharge, the patient was working well with physical therapy and was ambulating on his own. The patient's son stated that he will be staying with the patient for the next several days and assisting him in transition to home. A long discussion was had with the patient and son regarding the patient's alcohol consumption and the health risks associated with continued alcohol abuse. The patient's son expressed understanding. The patient was sent home with a short prescription for Serax to assist in his continued alcohol cessation. The patient and son were also instructed on the risks associated with consuming alcohol while taking this medication. They expressed understanding and agreed to follow up with PCP within the next several days for continued health optimization. DISCHARGE INSTRUCTIONS: 1. Location: Home. 2. Diet: Heart healthy-alcohol cessation. 3. Activity: As tolerated. No restrictions. 4. Followup: Out-of-town PCP within the next 7 days. Job ID: [id number]
== END 2019-05-17 12:51 | disposition home or self-care (01) | DRG 896 ==
LOC: ERS 13:12 → CCU 15:08 → T4-B 05-15 08:02
PROVIDERS: ADMIT Student in an Organized Health Care Education/Training Program; ATTEND Student in an Organized Health Care Education/Training Program
PROC: 5A1945Z Respiratory Ventilation, 24-96 Consecutive Hours (ICD-10-PCS; principal; 2019-05-13)
PROC: 0BH17EZ Insertion of Endotracheal Airway into Trachea, Via Natural or Artificial Opening (ICD-10-PCS; 2019-05-13)
DX: F10.231 Alcohol dependence with withdrawal delirium (principal); J96.00 Acute respiratory failure, unspecified whether with hypoxia or hypercapnia; J18.9 Pneumonia, unspecified organism; D61.818 Other pancytopenia; E87.1 Hypo-osmolality and hyponatremia; G93.49 Other encephalopathy; E87.6 Hypokalemia; E83.42 Hypomagnesemia; R74.0 Nonspecific elevation of levels of transaminase and lactic acid dehydrogenase [LDH]; K70.10 Alcoholic hepatitis without ascites; K74.60 Unspecified cirrhosis of liver; D64.9 Anemia, unspecified; G40.909 Epilepsy, unspecified, not intractable, without status epilepticus; D69.6 Thrombocytopenia, unspecified; R25.1 Tremor, unspecified; F32.9 Major depressive disorder, single episode, unspecified; Z88.0 Allergy status to penicillin; Z87.891 Personal history of nicotine dependence
CPT/HCPCS: 31500; 36415; 70450; 71045; 74177; 80053; 80306; 80307; 81003; 81015; 82533; 82607; 82728; 82746; 82805; 83540; 83550; 83615; 83690; 83735; 84100; 84145; 84300; 84443; 85025; 85610; 85730; 86705; 86706; 86709; 86780; 86803; 87086; 87340; 87389; 87521; 94002; 94003; C9113; J2060; J2250; J2704; J3411; J3430; J3480; J7131; Q9967